=== PATIENT | male | born 2005 | race Two or more races ===

== ENCOUNTER 2025-04-09 18:14 | Emergency (ER) | payer MEDICAID ==
[~2025-04-09] VITALS: Ht 160 cm; Wt 46.8 kg
[2025-04-09 18:32] VITALS: BP 121/48; PULSE 87; O2SAT 99
--- NOTE | 2025-04-09 20:47 | Physician Documentation ---
History of Present Illness ~ Chief Complaint: See Chief Complaint Stated Complaint: BUMP ON ABDOMEN Time Seen by MD: 20:29 HPI 19-year-old male was working out three days ago and felt a pop and a bulge protrude from his right inguinal region. States he thinks he may have a hernia. States he is still having normal bowel movements passing gas. denies any fever but reports increased pain swelling in the region Medication Reconciliation Allergies: Coded Allergies: No Known Allergies (Unverified , 04/09/25) Scheduled Amox Tr/Potassium Clavulanate (Augmentin 875-125 Tablet), 1 TAB PO Q12H Scheduled PRN Hydrocodone Bit/Acetaminophen 5/325 MG ([place] 5/325 MG), 1 TAB PO Q6H PRN for pain Review of Systems All Other Systems at this time: Reviewed and Negative ROS As stated above in the HPI, otherwise all systems are reviewed and negative. Physical Exam Vital Signs: Temperature: 97.6, Source: Oral, Heart Rate: 87, Respiratory Rate: 14, BP: 121/48, Pulse Oximetry: 99, Weight: 46.820 Physical Exam General: Alert, no apparent distress. Respiratory: Lungs clear, no respiratory distress. Gastrointestinal: Soft, nontender, nondistended. Bowels sounds present. genitourniary:: bulge with with erythema right inguinal area. Neurologic: Oriented x4. Psychiatric: Normal mood and affect. Skin: Normal color, warm and dry. No edema, no ecchymosis. Progress Results/Orders Results/Orders Completed Orders - BRENDON GRAY PILOT SUBMERSIBLE Morphine 4mg/Ml Inj. (Morphine Inj.) (04/09/25 20:40) Ondansetron Disint. Tablet (Zofran Odt T (04/09/25 20:40) Amox Tr/Potassium Clavulanate (Augmentin (04/09/25 21:10) Hydrocodone/Apap 10/325 ([place] 10/325mg (04/09/25 21:10) Medications Received in ER Medications (Trade) Dose Ordered Sig/Kimmy Route PRN Reason Start Time Stop Time Status Last Admin Dose Admin (morphine inj.) 4 mg ONCE ONCE IM 04/09/25 20:40 04/09/25 20:41 DC 04/09/25 21:00 4 MG (Zofran ODT tablet) 4 mg ONCE ONCE PO 04/09/25 20:40 04/09/25 20:41 DC 04/09/25 21:00 4 MG (Augmentin 875-125mg tablet) 1 tab ONCE ONCE PO 04/09/25 21:10 04/09/25 21:11 DC 04/09/25 21:24 1 TAB ([place] 10/325mg tab) 1 tab ONCE ONCE PO 04/09/25 21:10 04/09/25 21:19 DC 04/09/25 21:25 1 TAB Vital Signs 04/09/25 04/09/25 04/09/25 18:32 21:00 21:25 Temp 97.6 Pulse 87 Resp 14 16 16 B/P (MAP) 121/48 Pulse Ox 99 Medical Decision Making Findings We are giving the patient pain medication I attempted to reduce what I thought was a suspected the inguinal hernia. However via palpation it was a non mobile bulge indicating that this is likely a reactive lymph node and a developing infection. No surrounding open wounds or sores.. This time and will place the patient on antibiotics and give him some pain medication get him through the next few days Urinary Diff Dx:Considerations: Include: AAA, , Aortic dissection, Appendicitis, Bowel obstruction, Cholelithiasis, Choleangitis, DJD, Ectopic , Hepatitis, HNP, Impaction, Intrauterine , Musculoskeletal pain, Ovarian torsion, Pancreatitis, PID, Post-Op complication, Pyelonephritis, Renal failure, Strain, Urinary Obstruction, Urolithiasis, Urinary retention, UT I, Vaginitis, Other Genital Diff Dx:Considerations: Include: -Complete, - Incomplete, -Inevitable, Ablortion-Missed, -Threatened, Abruptio placentae, Bartholin abscess, Bartholin cyst, Blood loss anemia, Constipation, Cervicitis, Dsymenorrhea, Ectopic , Foreign body, Hormonal, Hidradenitis suppurativa, Intrauterine , Menorrhagia, Menometrorrhagia, Menstrual bleeding, Myomatous uterus, Perianal abscess, Physiologic discharge, Pinworms, PID, Placenta previa, , Precipitous Hct, Trauma, UTI, Vaginitis(osis)-Atrophic, Vaginitis, Vaginitis(osis)-Bacterial, Vaginitis(osis)- Candidal, Vaginitis(osis)-Contact, Vaginitis(osis)-Herpes, Vaginitis(osis)- Trich., Other Departure Disposition: HOME / SELF CARE / HOMELESS Impression: Primary Impression: Lymph node enlargement Condition: Improved Discharge Instructions: Pelvic Pain, Male Additional Instructions: This discussed I do not appreciate any signs of inguinal hernias we originally suspected. Upon examination appreciated what appears to be an inflamed lymph node in the right inguinal area. At this time on the structural on oral antibiotics and discharge her with some pain medication as your symptoms subside Referrals: NO PRIMARY CARE PROVIDER (PCP) Prescriptions Hydrocodone Bit/Acetaminophen 5/325 MG ([place] 5/325 MG) 5 Mg/325 Mg Tablet 1 TAB PO Q6H PRN for pain, #14 TAB Prov: BRENDON GRAY PILOT SUBMERSIBLE 04/09/25 Amox Tr/Potassium Clavulanate (Augmentin 875-125 Tablet) 1 Each Tablet 1 TAB PO Q12H for 10 Days, #20 TAB Prov: BRENDON GRAY PILOT SUBMERSIBLE 04/09/25 Education Educated: Patient Signature Scribe Signature: g Attestation: Scribed for Brendon Gray Front Desk Associate by Brendon Gray - GUIDO . 04/09/25 21:24 BRENDON GRAY NP Apr 09, 2025 20:47
[2025-04-09] MEDS: ondansetron 4mg rapidly disintigrating tab PO ONE (21:00)
[2025-04-09] MEDS: morphine 4 MG/ML inj SYRINge IM ONE (21:00)
[2025-04-09] MEDS ORDERED: AMOX-117 PO (21:21)
[2025-04-09] MEDS ORDERED: HYDR-3965 PO (21:21)
[2025-04-09] MEDS: amox tr/potassium clavulanate 875/125mg TAB PO ONE (21:24)
[2025-04-09 21:25] VITALS: RESP 16
[2025-04-09] MEDS: HYDROcodone/acetaminophen 10/325mg tab PO ONE (21:25)
[2025-04-09 21:38] VITALS: TEMP 97.6
[2025-04-10] MEDS ORDERED: AMOX-117 PO (02:09)
[2025-04-10] MEDS ORDERED: HYDR-3965 PO (02:09)
== END 2025-04-09 21:39 | disposition home or self-care (01) ==
LOC: ER 18:16
DX: R59.9 Enlarged lymph nodes, unspecified (principal)
CPT/HCPCS: 96372; 99284; J2270